=== PATIENT | male | born 1960 | race Caucasian/White ===

== ENCOUNTER 2023-09-05 11:11 | Day surgery (SDC) | payer BC ==
[2023-09-01 08:06] LABS: BASOPHILS # (AUTO) 0.1 X10'3 (0-0.2); BASOPHILS % (AUTO) 0.7 % (0-1); EOSINOPHILS # (AUTO) 0.2 X10'3 (0-0.9); EOSINOPHILS % (AUTO) 2.2 % (0-6); HEMATOCRIT 48.6 % (42.0-52.0); HEMOGLOBIN 16.3 g/dl (14.0-17.9); LYMPHOCYTES # (AUTO) 2.4 X10'3 (1.1-4.8); LYMPHOCYTES % (AUTO) 33.5 % (21-51); MEAN CORPUSCULAR HEMOGLOBIN 28.6 PG (27.0-31.0); MEAN CORPUSCULAR HGB CONC 33.6 g/dL (33.0-36.5); MEAN CORPUSCULAR VOLUME 85.2 FL (78-98); MEAN PLATELET VOLUME 7.7 FL (7.4-10.4); MONOCYTES # (AUTO) 0.6 X10'3 (0-0.9); MONOCYTES % (AUTO) 8.2 % (2-12); NEUTROPHILS % (AUTO) 55.4 % (42-75); PLATELET COUNT 304 X10'3 (140-440); RED BLOOD COUNT 5.71 X10'6 (4.70-6.10); RED CELL DISTRIBUTION WIDTH 13.5 % (11.5-14.5); WHITE BLOOD COUNT 7.3 X10'3 (4.5-11.0)
[2023-09-01 08:20] LABS: ANION GAP 8 (8-16); BLOOD UREA NITROGEN 11 MG/DL (7-18); BUN/CREATININE RATIO 9.4 (10.0-20.0); CALCIUM 9.2 MG/DL (8.5-10.1); CHLORIDE 105 MMOL/L (99-107); CHOL/HDL RATIO 3.4 (0.00-4.99); CHOLESTEROL 163 MG/DL (0-200); CREATININE 1.17 MG/DL (0.60-1.10); GLUCOSE 166 MG/DL (70-104); HDL CHOLESTEROL 48 MG/DL (35-60); LDL CHOLESTEROL 90 MG/DL (50-100); SODIUM 141 MMOL/L (135-145); TRIGLYCERIDES 135 MG/DL (20-135); eGFR 63 ML/MIN
[2023-09-01 08:30] LABS: APTT 27 SECONDS (22-32); PROTHROMBIN TIME 10.6 SECONDS (9.0-12.0)
[2023-09-05] VITALS (10 sets, daily range): BP systolic 131–158; BP diastolic 77–97; PULSE 73–84; RESP 14–20; TEMP 97.7; O2SAT 93–96
[~2023-09-05] VITALS: Ht 177.8 cm; Wt 109.4 kg
[2023-09-05] MEDS ORDERED: LORazepam 0.5 MG tablet PO PRN (11:40)
[2023-09-05] MEDS ORDERED: normal saline 1,000 ML IV SCH (11:40)
[2023-09-05] MEDS ORDERED: diphenhydrAMINE 25mg capsule PO PRN (11:40)
[2023-09-05] MEDS ORDERED: VALS320T2 PO (11:59)
[2023-09-05] MEDS ORDERED: CHOL100046 PO (11:59)
[2023-09-05] MEDS ORDERED: EMPA25TA PO (11:59)
[2023-09-05] MEDS ORDERED: LISI20TA28 PO (11:59)
[2023-09-05] MEDS ORDERED: METO-384 PO (11:59)
[2023-09-05] MEDS ORDERED: PANT40TA54 PO (11:59)
[2023-09-05] MEDS ORDERED: METF-1203 PO (11:59)
[2023-09-05] MEDS ORDERED: ASPI-1265 PO (11:59)
[2023-09-05] MEDS ORDERED: SEMA7TAB2 PO (11:59)
[2023-09-05] MEDS ORDERED: FENO160T PO (11:59)
[2023-09-05] MEDS ORDERED: ATOR40TA72 PO (11:59)
[2023-09-05] MEDS ORDERED: fentaNYL/PF 50MCG/1 ML 2ML syringe ONE (12:13)
[2023-09-05] MEDS ORDERED: verapamil 2.5 mg/ml inj IV ONE (12:13)
[2023-09-05] MEDS ORDERED: heparin 1,000unit/ml 10ml vial 10 ML ONE (12:13)
[2023-09-05] MEDS ORDERED: iohexol 350MG/ML 100ml bottle IV ONE ×2 (12:13→12:57)
[2023-09-05] MEDS ORDERED: LIDOcaine 1% (10mg/ml) 2ml vial ONE (12:13)
[2023-09-05] MEDS ORDERED: midazolam 1 mg/ML 2ml injection ONE (12:13)
[2023-09-05] MEDS ORDERED: nitroGLYCERIN 500mcg/5mL D5W 5 ML IV ONE (12:16)
[2023-09-05] MEDS ORDERED: ticagrelor 90mg tablet ONE (12:57)
[2023-09-05] MEDS ORDERED: aspirin 325mg tablet ONE (12:57)
[2023-09-05] MEDS ORDERED: ondansetron/PF 4mg/2ml inj IV PRN (13:40)
[2023-09-05] MEDS ORDERED: HYDROcodone/acetaminophen 10/325mg tab PO PRN (13:45)
[2023-09-05] MEDS ORDERED: nitroGLYCERIN 0.4mg SUBLingual tab SL PRN (13:45)
[2023-09-05] MEDS ORDERED: proCHLORperazine 10 MG/2 ml inj IV PRN (13:45)
[2023-09-05] MEDS ORDERED: OXAZEpam 15mg capsule PO PRN (13:45)
[2023-09-05] MEDS ORDERED: HYDROcodone/acetaminophen 5mg/325mg tablet PO PRN (13:45)
[2023-09-05] MEDS ORDERED: ticagrelor 90mg tablet PO SCH (20:00)
== END 2023-09-05 16:50 | disposition home or self-care (01) ==
LOC: SSTAY O 11:11
PROVIDERS: ATTEND Student in an Organized Health Care Education/Training Program
DX: I25.110 Atherosclerotic heart disease of native coronary artery with unstable angina pectoris (principal); E11.9 Type 2 diabetes mellitus without complications; E78.5 Hyperlipidemia, unspecified; I10 Essential (primary) hypertension; I47.10 Supraventricular tachycardia, unspecified; E55.9 Vitamin D deficiency, unspecified; E66.9 Obesity, unspecified; Z68.34 Body mass index [BMI] 34.0-34.9, adult; Z79.82 Long term (current) use of aspirin; Z79.84 Long term (current) use of oral hypoglycemic drugs; Z79.899 Other long term (current) drug therapy; Z79.01 Long term (current) use of anticoagulants
CPT/HCPCS: 36415; 80048; 80061; 82948; 85025; 85610; 85730; 93005; 93458; 99152; C1874; C9600; J1644; J2250; J3490; J7030; Q0163; Q9967; 99153; A6258; A6402; A6449; C1751; C1769; C1894; J3010